=== PATIENT | female | born 1935 | race Caucasian/White ===

== ENCOUNTER 2017-10-09 14:35 | Inpatient (IN) | payer MEDICARE ==
[~2017-10-09] VITALS: Ht 163.8 cm; Wt 73.8 kg
--- NOTE | ~2017-10-09 | PN ---
PATIENT:JOSELO BABB MEDICAL RECORD: [id number] LOCATION:[facility] ADMISSION DATE: 10/09/17 PROGRESS NOTE DATE OF SERVICE: 10/22/2017 SUBJECTIVE: No new complaint. OBJECTIVE: The patient has been started on routine benzodiazepines for anxious symptoms. Tolerating well. On exam, mood remains somewhat anxious. Affect is rather shallow and brittle. Speech is circumstantial. Content of thought unchanged. Sensorium unchanged. ASSESSMENT: No change in diagnosis. PLAN: 1. We will continue all current medication. 2. Continue supportive therapy. TRANSINT:[id number] Voice Confirmation ID: [id number] DOCUMENT ID: [id number] PAZ SERNA III, MD at 0625 CC: [id number] DICTATION DATE: 10/22/17 1132 EXIT BOOTH AGENT: 10/22/17 1140 ADM IN [place] [id number] [place] [id number]
--- NOTE | ~2017-10-09 | PN ---
PATIENT:JOSELO BABB MEDICAL RECORD: [id number] LOCATION:[facility] ADMISSION DATE: 10/09/17 PROGRESS NOTE DATE OF SERVICE: 10/16/2017 SUBJECTIVE: No new complaint. The patient states that she is happy while she is here. OBJECTIVE: On exam, the patient's mood is pleasant. Affect is somewhat reserved. Speech is fairly fluent. Content of thought is negative for suicidal ideation or psychosis. Sensorium unchanged. ASSESSMENT: No change in diagnosis. PLAN: 1. Continue current medication. 2. Continue supportive therapy. TRANSINT:[id number] Voice Confirmation ID: [id number] DOCUMENT ID: [id number] PAZ SERNA III, MD at 1027 CC: [id number] DICTATION DATE: 10/16/17 1057 SIGNS SALES REPRESENTATIVE: 10/16/17 1116 ADM IN [facility] [address] [place] [address]
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
--- NOTE | ~2017-10-09 | PN ---
PATIENT:JOSELO BABB MEDICAL RECORD: [id number] LOCATION:[facility] ADMISSION DATE: 10/09/17 PROGRESS NOTE DATE OF SERVICE: 10/17/2017 SUBJECTIVE: No new complaint. OBJECTIVE: The patient has continued to be cooperative. No further evidence of suicidality. On exam, mood is euthymic. Affect is bland. Speech somewhat tangential. Content of thought focuses today mainly on somatic concerns. Sensorium shows no change. ASSESSMENT: No change in diagnosis. PLAN: 1. Continue current medication. 2. Continue supportive therapy. TRANSINT:[id number] Voice Confirmation ID: [id number] DOCUMENT ID: [id number] PAZ SERNA III, MD at 1101 CC: [id number] DICTATION DATE: 10/17/17 1059 ORDER DESK CALLER: 10/17/17 1125 ADM IN [facility] [address] [place] [address]
--- NOTE | ~2017-10-09 | PSY ---
PATIENT NAME:JOSELO BABB MEDICAL RECORD: [id number] : 35 LOCATION:[facility] ADMISSION DATE: 10/09/17 ACCOUNT: [id number] PSYCHIATRIC EVALUATION DATE OF EVALUATION: 10/10/17 IDENTIFYING DATA: This is the first [facility] admission for this 82-year-old white female. HISTORY OF PRESENT ILLNESS: This patient was referred from [facility]. The patient stated to staff there that she did not feel that she could keep on going and that she wanted to . The patient had been showing increasing evidence of depressive symptoms recently. Significant history is that the patient has had a cerebrovascular accident in the past. She also underwent cardiac pacemaker implantation about 2 weeks ago. Because of potential danger to herself and evidence of significant depression, the patient is admitted. PAST MEDICAL HISTORY: Significant for cerebrovascular accident, chronic cardiac arrhythmias, osteoarthritis, hyperlipidemia, and recent cardiac pacemaker implantation. FAMILY HISTORY: Noncontributory. SOCIAL HISTORY: The patient is a . She has a son and a daughter. The daughter is directly involved in her care. No known substance abuse issues. ALLERGIES: LISTED PENICILLINS, SULFONAMIDE ANTIBIOTICS, AND CODEINE. MEDICATIONS: At the time of admission included Lipitor, aspirin, Remeron, senna, and tramadol. MENTAL STATUS: On interview, the patient is pleasant. She makes fairly good eye contact. Mood at the moment is euthymic. Affect is bland. Speech is somewhat tangential. Content of thought is positive for recent suicidal ideation. On sensorium testing, the patient is aware that she is in a hospital, but does not know the location. She is disoriented as to time. Remote recall shows some impairment, intermediate, and short-term recall significant impairment. DIAGNOSTIC IMPRESSION: AXIS I: Probable vascular dementia with behavioral disturbance, secondary depression. AXIS II: No diagnosis. AXIS III: History of cerebrovascular accident, chronic arrhythmias, pacemaker implantation, osteoarthritis, hyperlipidemia. AXIS IV: Moderate. AXIS V: 38. PLAN: 1. We will begin memory enhancing and antidepressant medication. 2. Continue further medical and psychiatric workup. 3. Daily supportive therapy. TRANSINT:[id number] Voice Confirmation ID: [id number] DOCUMENT ID: [id number] PAZ SERNA III, MD at 1912 CC: [id number] DICTATION DATE: 10/10/17 1028 TECHNICAL SOURCING RECRUITER: 10/10/17 1046 ADM IN [facility] [address] [facility]
--- NOTE | ~2017-10-09 | PN ---
PATIENT:JOSELO BABB MEDICAL RECORD: [id number] LOCATION:[facility] ADMISSION DATE: 10/09/17 PROGRESS NOTE DATE OF SERVICE: 10/12/2017 SUBJECTIVE: No new complaint. OBJECTIVE: The patient remains cooperative. She repeatedly states that she likes being in the hospital. On exam, mood for the most part euthymic. Affect rather shallow. Speech is slightly tangential. Content of thought is negative for suicidal ideation at the moment. Sensorium is unchanged. ASSESSMENT: No change in diagnosis. PLAN: 1. Continue current medication. 2. Continue supportive therapy. TRANSINT:[id number] Voice Confirmation ID: [id number] DOCUMENT ID: [id number] PAZ SERNA III, MD at 1012 CC: [id number] DICTATION DATE: 10/12/17708 DITCH INSPECTOR: 10/12/17 0906 ADM IN [facility] [address] [place] [address]
--- NOTE | ~2017-10-09 | PN ---
PATIENT:JOSELO BABB MEDICAL RECORD: [id number] LOCATION:[facility] ADMISSION DATE: 10/09/17 PROGRESS NOTE DATE OF SERVICE: 10/18/2017 SUBJECTIVE: The patient's case was discussed with staff. She has no new complaint. OBJECTIVE: The patient denies intent to harm herself or others. She is impaired cognitively. ASSESSMENT: No change in diagnoses. PLAN: Supportive and educational interventions were made. Nursing Home prognosis is guarded. I anticipate she can be transitioned out of the hospital soon if this level of improvement is maintained. TRANSINT:[id number] Voice Confirmation ID: [id number] DOCUMENT ID: [id number] LUIS ANGEL ARROYO MD at 0956 CC: [id number] DICTATION DATE: 10/18/17 1333 CERTIFIED SURGICAL TECHNICIAN: 10/18/17 1353 ADM IN [place] [id number] [place] [address]
--- NOTE | ~2017-10-09 | PN ---
PATIENT:JOSELO BABB MEDICAL RECORD: [id number] LOCATION:[facility] ADMISSION DATE: 10/09/17 PROGRESS NOTE DATE OF SERVICE: 10/23/2017 SUBJECTIVE: No new complaint is offered. OBJECTIVE: The patient has been doing better. She is socializing better and less fearful. Tolerating medications without difficulty. Discharge plans are pending depending on [facility]' review. On exam, mood is pleasant and euthymic. Affect is bland. Speech is fairly fluent. Content of thought is negative for suicidal ideation. Sensorium is unchanged. ASSESSMENT: No change in diagnosis. PLAN: 1. Continue current medication. 2. Continue supportive therapy. TRANSINT:[id number] Voice Confirmation ID: [id number] DOCUMENT ID: [id number] PAZ SERNA III, MD at 0911 CC: [id number] DICTATION DATE: 10/23/17 1146 BIODIESEL ENGINE SPECIALIST: 10/23/17 1239 ADM IN [place] [id number] [place] [address]
--- NOTE | ~2017-10-09 | PN ---
PATIENT:JOSELO MIDDLETON MEDICAL RECORD: [id number] LOCATION:[facility]112 ADMISSION DATE: 10/09/17 PROGRESS NOTE DATE OF SERVICE: 10/15/2017 SUBJECTIVE: Ms. Middleton does not offer new complaint. OBJECTIVE: The patient has remained very pleasant. She has not exhibited any further overt suicidal ideation, although on rounds today she did complain again about pain in her left arm and stated "I wish it was gone or maybe I could just go upstairs (heaven)." The patient made the above statement in a joking manner and did not seem to indicate actual suicidal intent. Aside from this, the patient's mood is euthymic. Affect is bland. Speech is somewhat terse, but otherwise fluent. Content of thought as noted above. No evidence of overt psychosis or true suicidal intent. Sensorium is unchanged. ASSESSMENT: No change in diagnosis. PLAN: 1. Maintain current medication. 2. Continue supportive therapy. TRANSINT:[id number] Voice Confirmation ID: [id number] DOCUMENT ID: [id number] PAZ SERNA III, MD at 0951 CC: [id number] DICTATION DATE: 10/15/17 1120 MEDIA THEORIST AND AUTHOR OF: 10/15/17 1319 ADM IN [place] [id number] [place] [address]
--- NOTE | ~2017-10-09 | PN ---
PATIENT:JOSELO BABB MEDICAL RECORD: [id number] LOCATION:[facility] ADMISSION DATE: 10/09/17 PROGRESS NOTE DATE OF SERVICE: 10/19/2017 SUBJECTIVE: The patient's case was discussed with staff. She has no new complaint. OBJECTIVE: The patient is in good behavioral control with limited insight about her condition. She tolerates her medicines well. ASSESSMENT: No change in diagnoses. PLAN: Brief supportive and educational interventions were made. The patient is in good behavioral control, although significantly and seriously impaired cognitively. She has no suicidal thoughts. TRANSINT:[id number] Voice Confirmation ID: [id number] DOCUMENT ID: [id number] LUIS ANGEL ARROYO MD at 1417 CC: [id number] DICTATION DATE: 10/19/17 1021 FAMILY PHYSICIAN: 10/19/17 1220 ADM IN [place] [id number] [place] [address]
--- NOTE | ~2017-10-09 | PN ---
PATIENT:JOSELO BABB MEDICAL RECORD: [id number] LOCATION:[facility] ADMISSION DATE: 10/09/17 PROGRESS NOTE DATE OF SERVICE: 10/14/2017 SUBJECTIVE: No new complaint noted. OBJECTIVE: The patient did undergo neuropsychological testing last week. She scored a 14/30 on the [facility] Mental Status exam, which indicates a very significant dementia. Staff note that the patient complains of pain in her left arm, which she says is related to her recent pacemaker implantation. It appears that her pain complaints are not consistent with her clinical situation at the moment. Staff note the patient tends to be repetitive and has very poor short-term memory. On exam, the patient's mood is euthymic. Affect is very reserved. Speech is terse. Content of thought is negative for overt psychosis or suicidality. The patient remains profoundly demented. Sensorium is unchanged. ASSESSMENT: No change in diagnosis. PLAN: 1. Maintain current medication. 2. Continue supportive therapy. TRANSINT:[id number] Voice Confirmation ID: [id number] DOCUMENT ID: [id number] PAZ SERNA III, MD at 1007 CC: [id number] DICTATION DATE: 10/14/17 1143 TOOTH CUTTER CLUTCH: 10/14/17 1150 ADM IN [place] [id number] [place] [address]
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
--- NOTE | ~2017-10-09 | PN ---
PATIENT:JOSELO BABB MEDICAL RECORD: [id number] LOCATION:[facility] ADMISSION DATE: 10/09/17 PROGRESS NOTE DATE OF SERVICE: 10/11/2017 SUBJECTIVE: The patient states that she is doing well. OBJECTIVE: creative services intern report that the patient is in some financial difficulty. One of her daughter who lives in another state has made arrangements for the patient to move there with her. The patient has made suicidal statements regarding her difficulties. The patient did have neuropsychological testing today, she scored 14/30. On exam, mood is fairly pleasant. Affect is bland. Speech somewhat tangential. Content of thought as noted above. Sensorium unchanged. ASSESSMENT: No change in diagnosis. PLAN: 1. Continue current medication. 2. Continue supportive therapy. TRANSINT:[id number] Voice Confirmation ID: [id number] DOCUMENT ID: [id number] PAZ SERNA III, MD at 1229 CC: [id number] DICTATION DATE: 10/11/17 1124 BAKED AND GRAPHITE INSPECTOR: 10/11/17 1130 ADM IN [place] [id number] [place] [address]
[2017-10-09] MEDS ORDERED: LIPITOR40 MG PO (16:35)
[2017-10-09] MEDS ORDERED: ASPIRIN325 MG PO (16:37)
[2017-10-09] MEDS ORDERED: MELATONIN 3 MG1 TAB PO (17:24)
[2017-10-09] MEDS ORDERED: REMERON15 MG PO (17:25)
[2017-10-09] MEDS ORDERED: DOK PLUS TABL1 UDTAB PO (17:26)
[2017-10-09] MEDS ORDERED: ULTRAM50 MG PO (17:26)
[2017-10-09 19:32] VITALS: BP 115/55
[2017-10-10 04:45] LABS: BASOPHILS 1.5 % (0-2); EOSINOPHILS 7.3 % (0-7); HEMATOCRIT 37.2 % (36.0-48.0); HEMOGLOBIN 12.3 g/dL (12-16); IMMATURE GRANULOCYTES 0.2 % (0-5); LYMPHOCYTES 40.4 % (15-50); MCH 31.7 pg (26.0-34.0); MCHC 33.1 g/dL (31.0-37.0); MCV 95.9 fL (80.0-100.0); MEAN PLATELET VOLUME 9.4 fL (7.4-10.4); MONOCYTES 7.9 % (2-11); NEUTROPHILS 42.7 % (40-80); PLATELET COUNT 181 10x3/uL (130-400); RBC 3.88 10x6/uL (4.00-5.40); WBC 5.3 10x3/uL (4.8-10.8)
[2017-10-10 04:51] VITALS: BP 135/71; BMI 27.4
[2017-10-10 05:24] LABS: ALBUMIN 3.1 g/dL (3.4-5.0); ANION GAP 8.6 mmol/L (8-16); BILIRUBIN - TOTAL 0.4 mg/dL (0.2-1.3); CALCIUM 9.1 mg/dL (8.5-10.1); CARBON DIOXIDE 32.4 mmol/L (21.0-32.0); LDL-HDL RATIO 0.9 ratio (1.5-3.5); THYROID STIMULATING HORMONE 2.86 uIU/mL (0.36-3.74)
[2017-10-10 05:49] LABS: PROTEIN - SERUM 6.2 g/dL (6.4-8.2)
[2017-10-10 08:10] VITALS: BP 128/70
[2017-10-10 08:13] VITALS: BMI 27.5
[2017-10-10 11:10] VITALS: BMI 27.5
[2017-10-10 17:08] LABS: APPEARANCE CLEAR (CLEAR); COLOR YELLOW (YELLOW); SPECIFIC GRAVITY 1.015 (1.005-1.020)
[2017-10-10 17:09] LABS: BILIRUBIN NEGATIVE (NEGATIVE); GLUCOSE NEGATIVE (NEGATIVE); KETONE NEGATIVE (NEGATIVE); NITRITE NEGATIVE (NEGATIVE); PROTEIN NEGATIVE (NEGATIVE); UROBILINOGEN NORMAL (NORMAL); WHITE CELLS - URINE 0-5 /hpf (0-5)
[2017-10-10 17:10] LABS: BACTERIA FEW /hpf (NONE SEEN); EPITHELIAL CELLS 0-5 /hpf (0-5)
[2017-10-10 19:08] VITALS: BP 125/66
[2017-10-11 07:43] VITALS: BP 122/68
[2017-10-11 09:17] LABS: FOLATE (FOLIC ACID) - SERUM 11.1 ng/mL (>3.0)
[2017-10-11 19:26] VITALS: BP 108/54
[2017-10-12 11:48] VITALS: BP 134/79
[2017-10-12 19:33] VITALS: BP 113/63
[2017-10-13 07:00] VITALS: BP 120/52
[2017-10-13 20:11] VITALS: BP 123/68
[2017-10-14 07:00] VITALS: BP 134/77
[2017-10-14 19:39] VITALS: BP 113/62
[2017-10-15 09:08] VITALS: BP 128/71
[2017-10-15 19:36] VITALS: BP 34/70
[2017-10-16 10:02] VITALS: BP 120/74
[2017-10-16 19:51] VITALS: BP 129/79
[2017-10-17 10:30] VITALS: BP 130/75
[2017-10-17 20:07] VITALS: BP 119/68
[2017-10-18 09:18] VITALS: BP 134/76
[2017-10-18 09:38] VITALS: BP 134/76
[2017-10-18 19:43] VITALS: BP 181/70
[2017-10-18 22:24] VITALS: Ht 163.8 cm; Wt 73.8 kg
[2017-10-19 10:42] VITALS: BP 108/61
[2017-10-19 20:16] VITALS: BP 110/67
[2017-10-20 08:27] VITALS: BP 135/82
[2017-10-20 19:26] VITALS: BP 108/67
[2017-10-21 07:00] VITALS: BP 132/69
[2017-10-21 19:56] VITALS: BP 112/65
[2017-10-22 07:56] VITALS: BP 148/64
[2017-10-22 19:55] VITALS: BP 121/64
[2017-10-23 09:28] VITALS: BP 118/68
[2017-10-23 19:33] VITALS: BP 104/63
[2017-10-24 08:30] VITALS: BP 103/73
[2017-10-24] MEDS ORDERED: NAMENDA5 MG PO (10:57)
[2017-10-24] MEDS ORDERED: LEXAPRO10 MG PO (10:57)
[2017-10-24] MEDS ORDERED: KLONOPIN0.5 MG PO (10:57)
[2017-10-24] MEDS ORDERED: ULTRAM50 MG PO (10:57)
[2017-10-24] MEDS ORDERED: VITAMIN D5000 UNIT PO (10:58)
[2017-10-24] MEDS ORDERED: VITAMIN B-121000 MCG PO (10:58)
== END 2017-10-24 16:10 | DRG 57 ==
LOC: D.PSYCH 14:35
PROVIDERS: Psychiatry & Neurology Psychiatry
DX: I69.318 Other symptoms and signs involving cognitive functions following cerebral infarction (principal); F01.51 Vascular dementia, unspecified severity, with behavioral disturbance; E87.0 Hyperosmolality and hypernatremia; I69.354 Hemiplegia and hemiparesis following cerebral infarction affecting left non-dominant side; F32.9 Major depressive disorder, single episode, unspecified; Z95.0 Presence of cardiac pacemaker; I69.391 Dysphagia following cerebral infarction; R13.10 Dysphagia, unspecified; E78.5 Hyperlipidemia, unspecified; M19.90 Unspecified osteoarthritis, unspecified site; Z74.09 Other reduced mobility; E55.9 Vitamin D deficiency, unspecified; E53.8 Deficiency of other specified B group vitamins; Z91.81 History of falling; M25.512 Pain in left shoulder; M25.511 Pain in right shoulder; W19.XXXA Unspecified fall, initial encounter; Y92.230 Patient room in hospital as the place of occurrence of the external cause; K59.00 Constipation, unspecified; G47.00 Insomnia, unspecified; G89.29 Other chronic pain